=== PATIENT | female | born 1985 | race Caucasian/White ===

== ENCOUNTER 2017-04-18 12:41 | Emergency (ER) | payer OTHER ==
[~2017-04-18] VITALS: Ht 175.3 cm; Wt 84.0 kg
[~2017-04-18 12:41] MED LIST: DICY10CA55 PO; DROS1TAB24 PO; IMT100 PO; ONDA4TAB7 SL
[2017-04-18 12:56] VITALS: Ht 175.3 cm; Wt 84.0 kg
[2017-04-18] MEDS ORDERED: IMTIN5 (13:05)
[2017-04-18] MEDS ORDERED: ONDANSETRON INJ 2 MG/ML 2 ML VIAL IV STA (13:11)
[2017-04-18] MEDS ORDERED: SODIUM CHLORIDE 0.9% 1000ML 1,000 ML IV STA ×2 (13:11→15:30)
[2017-04-18] MEDS ORDERED: KETOROLAC TROMETHAMINE 30 MG/ML VIAL IV STA (13:13)
[2017-04-18] MEDS ORDERED: ONDANSETRON INJ 8 MG in DEXTROSE 5% 50ML 50 ML IV STA (13:29)
[2017-04-18 13:43] LABS: BASO % 0.1 %; BASO ABS # 0.01 K/uL (0-0.2); COMPLETE YES; EOS % 0.2 %; HEMATOCRIT 38.5 % (37-47); IG% 0.2 %; LYMPH % 3.7 %; LYMPH ABS # 0.35 K/uL (1.2-3.4); MEAN CELL VOLUME 87.9 fL (80-100); MEAN CORPUSCULAR HEMOGLOBIN 31.3 pg (25-34); MEAN CORPUSCULAR HGB CONC 35.6 g/dl (32-36); MEAN PLATELET VOLUME 10.2 fL (7.4-10.4); MONO % 4.9 %; NEUT % 90.9 %; PLATELET COUNT 186 K/uL (130-400); RED BLOOD COUNT 4.38 M/uL (4.2-5.4); WHITE BLOOD COUNT 9.35 K/uL (4.8-10.8)
[2017-04-18 14:01] LABS: BUN/CREATININE RATIO 22.2 (10-20); CALCIUM 8.7 mg/dl (8.5-10.1); CREATININE 0.82 mg/dl (0.60-1.20); POTASSIUM 3.6 mmol/L (3.5-5.1)
--- NOTE | 2017-04-18 14:01 | DIAGNOSTIC IMAGING REPORT ---
CHEST ONE VIEW PORTABLE CLINICAL HISTORY: 31 years-old Female presenting with ABDOMINAL PAIN/GI. TECHNIQUE: Portable upright AP view of the chest was obtained. COMPARISON: None. FINDINGS: Cardiomediastinal silhouette normal. Lungs and pleural spaces clear. Osseous structures normal. Upper abdomen normal. IMPRESSION: 1. No acute cardiopulmonary disease. Electronically signed by: Isacc Thomason M.D. 04/18/2017 2:00 PM Dictated Date/Time: 04/18/2017 2:00 PM
[2017-04-18 14:04] LABS: URINE APPEARANCE CLOUDY (CLEAR); URINE BILIRUBIN NEG (NEG); URINE COLOR DK YELLOW; URINE EPITHELIAL CELL AUTO >30 /lpf (0-5); URINE NITRITE NEG (NEG); URINE SPECIFIC GRAVITY 1.028 (1.000-1.030); UROBILINOGEN NEG (NEG); ZZUR CULT IF INDIC CLEAN CATCH YES
[2017-04-18 14:09] LABS: MANUAL MICROSCOPIC REQUIRED? NO; REVIEW REQ? YES
[2017-04-18 14:37] LABS: URINE MUCUS PRESENT (NONE PRSENT)
[2017-04-18] MEDS ORDERED: PROCHLORPERAZINE 5 MG/ML 2 ML VIAL IV STA (16:53)
[2017-04-18] MEDS ORDERED: ONDA4TAB10 SL (18:04)
--- NOTE | 2017-04-18 18:04 | EMERGENCY ROOM VISIT NOTE ---
History Report prepared by [place]: Ilan Mckinney Under the Supervision of: Paris LunaO. First contact with patient: 13:05 Chief Complaint: FLU LIKE SX Stated Complaint: VOMITING, FEVER, CHILLS, DIARRHEA History of Present Illness The patient is a 31 year old female who presents to the Emergency Room with complaints of the patient woke up this morning at 0200 and vomited 20 times. The patient also reports diarrhea (10 times), fever, and chills. The patient took a Zofran with minimal improvement. The patient states she can not keep any food or liquids down. The patient reports generalized body soreness and heart palpitations. Source of History: patient Onset: 11 hours ago Position: other (global) Timing: constant Modifying Factors (Relieving): other (Zofran) Associated Symptoms: + fevers, + chills, + nausea, + vomiting, + diarrhea Note: The pt reports body soreness and heart palpitations. Review of Systems See HPI for pertinent positives & negatives. A total of 10 systems reviewed and were otherwise negative. Past Medical & Surgical Medical Problems: (1) Migraine Social History Smoking Status: Never Smoker Marital Status: single Housing Status: lives alone Occupation Status: employed Current/Historical Medications Scheduled Ondasetron Odt (Zofran Odt), 4 MG SL Q6H Scheduled PRN Dicyclomine Hcl (Bentyl), 10 MG PO UD PRN for abdominal pain Sumatriptan Succinate (Imitrex Nasal [place]), 1 SPRAY NA for Migraine Allergies Coded Allergies: No Known Allergies (Unverified , 04/18/17) Physical Exam Vital Signs Date Time Temp Pulse Resp B/P (MAP) Pulse Ox O2 Delivery O2 Flow Rate FiO2 04/18/17 18:05 85 04/18/17 17:01 86 20 121/68 04/18/17 16:06 78 17 04/18/17 15:51 80 20 04/18/17 15:36 89 18 04/18/17 15:21 103 25 04/18/17 15:06 85 23 04/18/17 14:46 90 17 04/18/17 14:41 86 20 04/18/17 14:36 89 19 04/18/17 14:31 86 21 04/18/17 14:26 82 19 04/18/17 14:21 88 21 04/18/17 14:16 94 24 04/18/17 14:11 93 18 04/18/17 14:06 82 17 04/18/17 14:04 90 04/18/17 12:56 37.6 133 20 127/81 97 Room Air Physical Exam CONSTITUTIONAL/VITAL SIGNS: Reviewed / noted above. GENERAL: Non-toxic in appearance. INTEGUMENTARY: Warm, dry, and [place]. HEAD: Normocephalic. EYES: without scleral icterus or trauma. ENT/OROPHARYNX: clear and moist. LYMPHADENOPATHY/NECK: Is supple without lymphadenopathy or meningismus. RESPIRATORY: Lungs clear and equal. CARDIOVASCULAR: tachycardia rate and rhythm. GI/ABDOMEN: Soft and nontender. No organomegaly or pulsatile mass. No rebound or guarding. Normal bowel sounds. EXTREMITIES: Warm and well perfused. BACK: No CVA tenderness. NEUROLOGICAL: Intact without focal deficits. PSYCHIATRIC: normal affect. MUSCULOSKELETAL: Normally developed with good muscle tone. Medical Decision & Procedures ER Provider Diagnostic Interpretation: Radiology results as stated below per my review and radiologist interpretation: CHEST ONE VIEW PORTABLE CLINICAL HISTORY: 31 years-old Female presenting with ABDOMINAL PAIN/GI. TECHNIQUE: Portable upright AP view of the chest was obtained. COMPARISON: None. FINDINGS: Cardiomediastinal silhouette normal. Lungs and pleural spaces clear. Osseous structures normal. Upper abdomen normal. IMPRESSION: 1. No acute cardiopulmonary disease. Electronically signed by: Isacc Thomason M.D. 04/18/2017 2:00 PM Dictated Date/Time: 04/18/2017 2:00 PM Laboratory Results 04/18/17 13:24 Red Blood Count 4.38, Mean Corpuscular Volume 87.9, Mean Corpuscular Hemoglobin 31.3, Mean Corpuscular Hemoglobin Concent 35.6, Mean Platelet Volume 10.2, Neutrophils (%) (Auto) 90.9, Lymphocytes (%) (Auto) 3.7, Monocytes (%) (Auto) 4.9, Eosinophils (%) (Auto) 0.2, Basophils (%) (Auto) 0.1, Neutrophils # (Auto) 8.49, Lymphocytes # (Auto) 0.35, Monocytes # (Auto) 0.46, Eosinophils # (Auto) 0.02, Basophils # (Auto) 0.01 04/18/17 13:24 Test 04/18/17 13:24 04/18/17 13:30 White Blood Count 9.35 K/uL (4.8-10.8) Red Blood Count 4.38 M/uL (4.2-5.4) Hemoglobin 13.7 g/dL (12.0-16.0) Hematocrit 38.5 % (37-47) Mean Corpuscular Volume 87.9 fL (80-100) Mean Corpuscular Hemoglobin 31.3 pg (25-34) Mean Corpuscular Hemoglobin Concent 35.6 g/dl (32-36) Platelet Count 186 K/uL (130-400) Mean Platelet Volume 10.2 fL (7.4-10.4) Neutrophils (%) (Auto) 90.9 % Lymphocytes (%) (Auto) 3.7 % Monocytes (%) (Auto) 4.9 % Eosinophils (%) (Auto) 0.2 % Basophils (%) (Auto) 0.1 % Neutrophils # (Auto) 8.49 K/uL (1.4-6.5) Lymphocytes # (Auto) 0.35 K/uL (1.2-3.4) Monocytes # (Auto) 0.46 K/uL (0.11-0.59) Eosinophils # (Auto) 0.02 K/uL (0-0.5) Basophils # (Auto) 0.01 K/uL (0-0.2) RDW Standard Deviation 39.4 fL (36.4-46.3) RDW Coefficient of Variation 12.3 % (11.5-14.5) Immature Granulocyte % (Auto) 0.2 % Immature Granulocyte # (Auto) 0.02 K/uL (0.00-0.02) Anion Gap 10.0 mmol/L (3-11) Est Creatinine Clear Calc Drug Dose 116.1 ml/min Estimated GFR () 111.3 Estimated GFR (Non- 96.0 BUN/Creatinine Ratio 22.2 (10-20) Calcium Level 8.7 mg/dl (8.5-10.1) Total Bilirubin 1.7 mg/dl (0.2-1) Direct Bilirubin 0.2 mg/dl (0-0.2) Aspartate Amino Transf (AST/SGOT) 10 U/L (15-37) Alanine Aminotransferase (ALT/SGPT) 14 U/L (12-78) Alkaline Phosphatase 52 U/L (45-117) Total Protein 7.9 gm/dl (6.4-8.2) Albumin 3.9 gm/dl (3.4-5.0) Lipase 137 U/L (73-393) Urine Color DK YELLOW Urine Appearance CLOUDY (CLEAR) Urine pH 5.0 (4.5-7.5) Urine Specific [place] 1.028 (1.000-1.030) Urine Protein NEG (NEG) Urine Glucose (UA) NEG (NEG) Urine Ketones TRACE (NEG) Urine Occult Blood 2+ (NEG) Urine Nitrite NEG (NEG) Urine Bilirubin NEG (NEG) Urine Urobilinogen NEG (NEG) Urine Leukocyte Esterase TRACE (NEG) Urine WBC (Auto) 1-5 /hpf (0-5) Urine RBC (Auto) 0-4 /hpf (0-4) Urine Hyaline Casts (Auto) 1-5 /lpf (0-5) Urine Epithelial Cells (Auto) >30 /lpf (0-5) Urine Bacteria (Auto) 1+ (NEG) Urine Mucus PRESENT (NONE PRSENT) Urine Yeast (Auto) (NONE PRSENT) Laboratory results as stated above per my review. Medications Administered Medications (Trade) Dose Ordered Sig/Christ Route Start Time Stop Time Status Last Admin Dose Admin Sodium Chloride 1,000 ml @ 999 mls/hr Q1H1M STAT IV 04/18/17 13:11 04/18/17 14:11 DC 04/18/17 13:28 999 MLS/HR Ketorolac Tromethamine (Toradol Inj) 30 mg NOW STAT IV 04/18/17 13:13 04/18/17 13:14 DC 04/18/17 13:29 30 MG Ondansetron HCl 8 mg/Dextrose 54 ml @ 216 mls/hr NOW STAT IV 04/18/17 13:29 04/18/17 13:43 DC 04/18/17 13:55 216 MLS/HR Sodium Chloride 1,000 ml @ 999 mls/hr Q1H1M STAT IV 04/18/17 15:30 04/18/17 16:30 DC 04/18/17 16:12 999 MLS/HR Prochlorperazine Edisylate (Compazine Inj) 10 mg NOW STAT IV 04/18/17 16:53 04/18/17 16:54 DC 04/18/17 17:00 10 MG ED Course 1305: Previous medical records were reviewed. The patient was evaluated in room C9. A complete history and physical examination was performed. 1311: Zofran Inj, 8 mg IV; Sodium Chloride 1000 ml @ 999 mls/hr IV. 1313: Toradol Inj, 30 mg IV. 1329: Ondansetron HCl 8 mg/Dextrose, 54 ml @ 216 mls/hr IV. 1526: I checked in on the patient and updated her on the management plan. The patient is tachycardiac when she stands up and I gave her more fluids. 1530: Sodium Chloride 1000 ml @ 999 mls/hr IV. 1651: I checked in on the patient and she is doing better. She still feels slightly nauseous so I gave her additional nausea medication. 1653: Compazine Inj 10 mg IV. 1815: Zofran ODT 4mg Home Pack, 1 pack PO. 1830: On reevaluation, the patient is doing well. I discussed the results and findings with the patient. She verbalized agreement of the treatment plan. The patient was discharged home. Medical Decision Differential diagnosis: Etiologies such as gastroenteritis, food borne illness, infections, appendicitis , diverticulitis, inflammatory bowel disease, obstruction, GI bleed, biliary pathology, as well as others were entertained. This is a 31-year-old female who presents to the ED with a chief complaint of vomiting and diarrhea. The patient states that her symptoms started around 2 AM. She reports about 20 episodes of vomiting at 10 episodes of diarrhea. She has some mild Abdominal discomfort but no focal tenderness. She reports subjective fevers and chills. The patient's exam reveals a tachycardia. Mild diffuse abdominal tenderness on exam. Chest x-ray did not show acute disease. CBC is normal, complete metabolic panel was unremarkable. Total bilirubin was 1.7. Lipase was negative. The patient was treated with IV Zofran, IV Compazine , IV fluids 2 L and IV Toradol. She does not have any additional vomiting or diarrhea while she was here. She is felt to be stable for discharge on Zofran. Medication Reconcilliation Current Medication List: was personally reviewed by me Blood Pressure Screening Patient's blood pressure: Normal blood pressure Blood pressure disposition: Did not require urgent referral Impression Primary Impression: Nausea vomiting and diarrhea Additional Impression: Dehydration Scribe Attestation The scribe's documentation has been prepared under my direction and personally reviewed by me in its entirety. I confirm that the note above accurately reflects all work, treatment, procedures, and medical decision making performed by me. Departure Information Dispostion Home / Self-Care Prescriptions Ondasetron Odt (ZOFRAN ODT) 4 Mg Tab 4 MG SL Q6H for Nausea, #20 TAB Prov: Ramy Lovelace D.O. 04/18/17 Referrals Warren Mendieta M.D. (PCP) Patient Instructions [facility] Additional Instructions Zofran: Allow one tablet to dissolve under the tongue every 6 hours as needed for nausea or vomiting. Return to the emergency department for worsening or new symptoms or any concerns. You have been examined and treated today on an emergency basis only. This is not a substitute for, or an effort to provide, complete comprehensive medical care. It is impossible to recognize and treat all injuries or illnesses in a single emergency department visit. It is therefore important that you follow up closely with your doctor. Call as soon as possible for an appointment. Problem Qualifiers
[2017-04-18] MEDS ORDERED: ONDANSETRON HOME PACK 4MG OD TAB PO ONE (18:15)
[2017-04-18 18:20] VITALS: BP 121/68; PULSE 100; TEMP 37.6; O2SAT 97
== END 2017-04-18 18:00 | disposition home or self-care (01) ==
LOC: C.EDB 12:43 → C.EDC 18:00
DX: R11.2 Nausea with vomiting, unspecified (principal); E86.0 Dehydration; R50.9 Fever, unspecified; R19.7 Diarrhea, unspecified

== ENCOUNTER → 2017-06-24 | Outpatient (CLI) | payer OTHER ==
[~2017-06-24] MED LIST changes: -DROS1TAB24 PO; -IMT100 PO; +IMTIN5; +ONDA4TAB10 SL; -ONDA4TAB7 SL
[2017-06-27 15:49] LABS: ANA SCREEN TC 249X NEGATIVE (NEGATIVE)
== END | disposition home or self-care (01) ==
LOC: C.LAB 12:49
PROVIDERS: ATTEND Student in an Organized Health Care Education/Training Program
DX: R53.83 Other fatigue (principal)